=== PATIENT | male | born 2000 | race Asian ===

== ENCOUNTER 2021-12-30 20:56 | Emergency (ER) | payer BC ==
[~2021-12-30] VITALS: Ht 182.9 cm; Wt 91.6 kg
[2021-12-30 21:10] VITALS: BP_SYST 111
[2021-12-30] MEDS ORDERED: IBUP-1969 PO (21:59)
[2021-12-30] MEDS ORDERED: ACET-2634 PO (21:59)
[2021-12-30 22:50] VITALS: BP_SYST 113
== END 2021-12-30 22:43 | disposition home or self-care (01) ==
LOC: SED 20:56
DX: J06.9 Acute upper respiratory infection, unspecified (principal); Z79.899 Other long term (current) drug therapy
CPT/HCPCS: 0241U; 36415; 99282; C9803